=== PATIENT | female | born 1960 | race Two or more races ===

== ENCOUNTER 2022-04-20 19:41 | Emergency (ER) | payer OTHER ==
[~2022-04-20] VITALS: Ht 162.6 cm; Wt 81.8 kg
[2022-04-20] MEDS ORDERED: ASPirin 325 MG TAB PO ONE ×2 (20:15→20:30)
[2022-04-20] MEDS ORDERED: IPRATROPIUM BROM 0.5 MG/2.5ML INH SOL NEB ONE (20:30)
[2022-04-20] MEDS ORDERED: ALBUTEROL SULF 2.5 MG/0.5ML(0.5%) NEB SOLN NEB ONE (20:30)
[2022-04-20] MEDS ORDERED: methylPREDNISolone SOD SUCC 125 MG/2 ML VL IV ONE (20:30)
[2022-04-20 21:27] LABS: Basophils # (auto) 0 10 ^3/uL (0-0.2); Basophils % (auto) 0.4 % (0.0-2.0); Eosinophils # (auto) 0.5 10 ^3/uL (0-0.8); Eosinophils % (auto) 3.8 % (0.0-7.0); Hematocrit 40.4 % (36.0-46.0); Hemoglobin 12.9 g/dL (12.2-16.2); Lymphocytes # (auto) 3.8 10 ^3/uL (0.4-5.4); Lymphocytes % (auto) 27.5 % (10.0-50.0); Mean Corpuscular Hemoglobin 27.3 pg (28.0-32.0); Mean Corpuscular Hgb Conc. 32.1 g/dL (32.0-36.0); Monocytes # (auto) 0.9 10 ^3/uL (0-1.3); Monocytes % (auto) 6.5 % (0.0-12.0); Neutrophils # (auto) 8.5 10 ^3/uL (1.6-8.6); Neutrophils % (auto) 61.8 % (37.0-80.0); Nucleated Red Blood Cells % 0.1 %; Red Blood Cells 4.75 10^6/uL (4.0-5.20); Red Cell Distribution Width 13.8 % (11.8-14.3); White Blood Cell 13.8 10^3/uL (4.4-10.8)
[2022-04-20 21:51] LABS: Albumin 3.5 g/dL (3.4-5.0); Calcium 8.6 mg/dL (8.5-10.1); Potassium 3.9 mmol/L (3.5-5.1)
[2022-04-20 21:54] LABS: BUN/Creatinine Ratio 29.5; Bilirubin, Total 0.3 mg/dL (0.2-1.0); Total Protein 7.5 g/dL (6.4-8.2)
[2022-04-21] MEDS ORDERED: levoFLOXacin 250 MG TAB PO ONE (02:15)
[2022-04-21] MEDS ORDERED: LEVO500T31 PO (02:25)
[2022-04-21] MEDS ORDERED: ALBUAER3 INH (02:25)
[2022-04-21 05:30] VITALS: BP 146/88
== END 2022-04-21 13:00 | disposition home or self-care (01) ==
LOC: ER 19:45
DX: R06.00 Dyspnea, unspecified (principal); R07.89 Other chest pain; R00.0 Tachycardia, unspecified; R09.02 Hypoxemia; I10 Essential (primary) hypertension; E11.9 Type 2 diabetes mellitus without complications; E78.5 Hyperlipidemia, unspecified; Z20.822 Contact with and (suspected) exposure to COVID-19
CPT/HCPCS: 36415; 36600; 71045; 71275; 80053; 82805; 82962; 83880; 84484; 85025; 85379; 87426; 93005; 94640; 96374; 99285; J2930; J7644